=== PATIENT | female | born 1990 | race Caucasian/White ===

== ENCOUNTER → 2023-11-10 15:05 | Outpatient (REF) | payer OTHER, SELFPAY | LOC: HWRAD 15:05 | PROVIDERS: ATTENDING PHYSICIAN Nurse Practitioner Adult Health | DX: R20.0 Anesthesia of skin (principal); Z91.81 History of falling | CPT/HCPCS: 72110 ==

== ENCOUNTER → 2024-03-29 16:29 | Outpatient (REF) | payer OTHER, SELFPAY | LOC: HWRAD 16:29 | PROVIDERS: ATTENDING PHYSICIAN Family Medicine | DX: M54.2 Cervicalgia (principal) | CPT/HCPCS: 72040 ==

== ENCOUNTER 2024-07-23 16:47 | Outpatient (RCR) | payer OTHER, SELFPAY | END 2024-07-23 23:59 | disposition home or self-care (01) | LOC: ROT 16:47 | PROVIDERS: ATTENDING PHYSICIAN Physician Assistant Medical; FAMILY PHYSICIAN Family Medicine | DX: Z47.89 Encounter for other orthopedic aftercare (principal); S62.327D Displaced fracture of shaft of fifth metacarpal bone, left hand, subsequent encounter for fracture with routine healing (principal); Z73.6 Limitation of activities due to disability; V80.010D Animal-rider injured by fall from or being thrown from horse in noncollision accident, subsequent encounter | CPT/HCPCS: 97018; 97110; 97140; 97166; 97535 ==

== ENCOUNTER 2024-08-20 16:27 | Outpatient (RCR) | payer OTHER, SELFPAY | END 2024-08-20 23:59 | disposition home or self-care (01) | LOC: ROT 16:27 | PROVIDERS: ATTENDING PHYSICIAN Physician Assistant Medical; FAMILY PHYSICIAN Family Medicine | DX: Z47.89 Encounter for other orthopedic aftercare (principal); S62.327D Displaced fracture of shaft of fifth metacarpal bone, left hand, subsequent encounter for fracture with routine healing (principal); Z73.6 Limitation of activities due to disability; V80.010D Animal-rider injured by fall from or being thrown from horse in noncollision accident, subsequent encounter | CPT/HCPCS: 97018; 97110; 97140 ==

== ENCOUNTER 2024-09-03 16:42 | Outpatient (RCR) | payer OTHER, SELFPAY | END 2024-09-03 23:59 | disposition home or self-care (01) | LOC: ROT 16:42 | PROVIDERS: ATTENDING PHYSICIAN Physician Assistant Medical; FAMILY PHYSICIAN Family Medicine | DX: Z47.89 Encounter for other orthopedic aftercare (principal); S62.327D Displaced fracture of shaft of fifth metacarpal bone, left hand, subsequent encounter for fracture with routine healing; Z73.6 Limitation of activities due to disability; V80.010D Animal-rider injured by fall from or being thrown from horse in noncollision accident, subsequent encounter | CPT/HCPCS: 97018; 97110; 97140 ==

== ENCOUNTER 2024-09-24 16:15 | Outpatient (RCR) | payer OTHER, SELFPAY | END 2024-09-24 23:59 | disposition home or self-care (01) | LOC: ROT 16:15 | PROVIDERS: ATTENDING PHYSICIAN Physician Assistant Medical; FAMILY PHYSICIAN Family Medicine | DX: S62.327D Displaced fracture of shaft of fifth metacarpal bone, left hand, subsequent encounter for fracture with routine healing (principal); V80.010D Animal-rider injured by fall from or being thrown from horse in noncollision accident, subsequent encounter; Z73.6 Limitation of activities due to disability | CPT/HCPCS: 97110; 97140 ==